=== PATIENT | male | born 1945 | race Caucasian/White ===

== ENCOUNTER 2016-08-10 11:38 | Outpatient (CLI) ==
--- NOTE | 2016-08-10 12:02 | DI ---
EXAM: Chest two views CLINICAL INDICATION: Chronic respiratory failure. COMPARISON: Prior CT dated 06/16/2016. FINDINGS: PA and lateral views of the thorax are provided. There are chronic underlying pulmonary parenchymal changes. There are bibasilar areas of scarring w hich are grossly unchanged from the prior CT. The remainder of the pulmonary parenchyma is clear an d there is no pleural abnormality. The cardiomediastinal silhouette and visualized bony structures are unchanged. IMPRESSION: 1. No interval change, with no acute pulmonary abnormality. 2. Bibasilar area of scarring.
== END 2016-08-10 11:39 | disposition home or self-care (01) ==
LOC: RAD 11:38
PROVIDERS: ATTEND Internal Medicine Pulmonary Disease
DX: J96.11 Chronic respiratory failure with hypoxia (principal)

== ENCOUNTER 2016-09-09 17:28 | Outpatient (CLI) ==
[2016-09-09 17:41] VITALS: BMI 34.7
== END 2016-09-09 17:29 ==
LOC: AMBL 17:28
PROVIDERS: ATTEND Family Medicine
DX: J96.00 Acute respiratory failure, unspecified whether with hypoxia or hypercapnia (principal); R00.1 Bradycardia, unspecified; R40.4 Transient alteration of awareness; R32 Unspecified urinary incontinence; E11.9 Type 2 diabetes mellitus without complications

== ENCOUNTER 2016-09-09 17:30 | Emergency (ER) ==
[2016-09-09] MEDS ORDERED: SODIUM CHLORIDE 1,000 ML IV STA ×2 (17:33→17:44)
[2016-09-09 17:41] VITALS: BMI 34.7
[2016-09-09 17:46] LABS: BASOPHILS % (AUTO) 0.5 % (0.0-3.0); EOSINOPHILS # (AUTO) 0.2 K/ul (0.0-0.7); HEMATOCRIT 37.1 % (42.0-52.0); HEMOGLOBIN 11.5 g/dl (14.0-18.0); LYMPHOCYTES # (AUTO) 1.5 K/uL (0.60-3.4); LYMPHOCYTES % (AUTO) 18.8 (10.0-50.0); MEAN CORPUSCULAR HEMOGLOBIN 31.3 pg (27.0-31.0); MEAN CORPUSCULAR VOLUME 101.1 fl (80.0-94.0); MONOCYTES % (AUTO) 12.7 (0-10); NEUTROPHILS # (AUTO) 5.1 K/ul (2.0-6.9); PLATELET COUNT 301 10^3/uL (140-440); RED BLOOD COUNT 3.67 10^6/ul (4.70-6.10); WHITE BLOOD COUNT 7.97 K/ul (4.2-10.2)
[2016-09-09] MEDS ORDERED: ANECTINE IVP STA (17:46)
[2016-09-09] MEDS ORDERED: DIPRIVAN 20 ML VIAL IVP STA (17:46)
[2016-09-09 17:52] LABS: ABG PCO2 68.5 mmHg (35-45); ABG PH 7.282 (7.35-7.45)
[2016-09-09 17:53] LABS: ABG BASE EXCESS 6 (-2.0-2.0); ABG HCO3 32.3 (22.0-26.0); ABG TCO2 34 (22.0-28.0)
[2016-09-09] MEDS ORDERED: URO-JET MUCOUSMEMB STA (18:00)
[2016-09-09 18:14] LABS: ALBUMIN 2.7 g/dL (3.4-5.0); ALBUMIN/GLOBULIN RATIO 0.77; ANION GAP 18.5; BILIRUBIN,TOTAL 0.81 mg/dL (0.00-1.20); BUN/CREATININE RATIO 19.65; CALCIUM 8.4 mg/dL (8.2-10.2); CREATININE 2.9 mg/dL (0.60-1.10); POTASSIUM 5.5 mmol/L (3.5-5.1); TOTAL PROTEIN 6.2 g/dL (5.8-8.1); TROPONIN I 0.033 ng/ml (0.0000-0.4000)
[2016-09-09] MEDS ORDERED: ZOSYN 3.375 GM 3.375 GM in SODIUM CHLORIDE 100 ML IV STA (18:16)
--- NOTE | 2016-09-09 18:18 | DI ---
EXAM: Chest one view. CLINICAL INDICATION: Respiratory failure. COMPARISON: 08/10/2016. FINDINGS: A single AP radiograph of the thorax is provided. The endotracheal tube is in good position. There is interval development of patchy pulmonary parenchymal opacities within the inferior one half of the right hemithorax. There are chronic underlying pulmonary parenchymal changes. The remainde r of the pulmonary parenchyma is clear and there is no pleural abnormality. The cardiomediastinal s ilhouette and visualized bony structures are unchanged. IMPRESSION: 1. Endotracheal tube in good position. 2. Patchy right-sided pulmonary parenchymal opacities.
[2016-09-09] MEDS ORDERED: URO-JET MUCOUSMEMB ONE (18:20)
--- NOTE | 2016-09-09 18:20 | ED.PDOC ---
Procedures - Intubation Time of Intubation: 17:46 Medications: Yes: Norcuron (8mg), Succinylcholine (100), Versed (2.5mg X2), Propofol (40mg), Other (ephedrine 10mg X 2) Type of Tube Used: Endotracheal Tube Size: 7.5 Cricoid Pressure Used: Yes Tube Castellon Used: Yes Position of Tube at Lip: 23cm Number of Attempts: 1 Suction Used: No Glidescope Used: No CO2 Detector Used: Yes Lung Sounds Equal Bilaterally: Yes Intubation Complications: Present: No complications Tube Placement Verified by X-ray: Yes Conscious Sedation - Pre-op Assessment Weight: 300 lb Surgical History: unknown - Medical History Past Medical History: Hypertension, Diabetes, CHF, Kidney Disease Other History: pulmonary fibrosis - Physical Exam Heart Rate/Rhythm: Regular Rate
--- NOTE | 2016-09-09 18:23 | ED.PDOC ---
General Stated Complaint: he is not breathing well Time Seen by Physician: 17:35 Mode of Arrival: Ambulance Information Source: Patient, Family, EMT Exam Limitations: No limitations Nursing and Triage Documentation Reviewed and Agree: Yes <KLEBER BUSCH - Last Filed: 09/09/16 18:21> <NOLBERTO ROQUE - Last Filed: 09/10/16 06:07> ED Provider: Dr. NOLBERTO ROQUE (KLEBER BUSCH) (NOLBERTO ROQUE) Chief Complaint: Respiratory Complaint Primary Care Provider: KLEBER PATIÑO) (NOLBERTO ROQUE) Respiratory Complaint Exam - Shortness of Air Complaint/Exam Onset/Duration: today Symptoms Are: Still present Initial Severity: Moderate Current Severity: Severe Character: Reports: Dyspnea at rest Aggravating: Reports: None Alleviating: Reports: None Associated Signs and Symptoms: Reports: Rapid breathing, Labored breathing. Denies: Cough, Wheezing, Chest pain with cough, Chest pain, Chills, Diaphoresis , Nasal congestion, Dizziness, Calf swelling, Edema, Decreased intake Related History: Reports: Similar episode History of Healthcare-Acquired Pneumonia: No Cardiac Risk Factors: Reports: Diabetes, Hypertension Pseudomonas Risk Factors: Reports: Chronic Lung Disease Tuberculosis Risk Factors: Reports: Chronic Resp. Faliure Home Oxygen Use: Yes Recent Stress Test: No Respiratory Distress: Severe Stridor Present: No Tracheal Deviation: No Subcutaneous Emphysema: No Accessory Muscle Use: Yes Retractions: Intercostal Diminished Breath Sounds: Yes Prolonged Expiratory Phase: No Unable to Speak Full Sentences: Yes Fatigue: Yes Leg Swelling: No Edilma's Sign Present: No Grunting Respirations: No Kussmaul Respirations: No Differential Diagnoses: Pulmonary Edema, Pneumonia Quality Indicator For Non-Traumatic Chest Pain/Syncope: EKG Performed <KLEBER BUSCH - Last Filed: 09/09/16 18:21> Review of Systems - Review Of Systems Constitutional: Reports: No symptoms Eyes: Reports: No symptoms Ears, Nose, Mouth, Throat: Reports: No symptoms Respiratory: Reports: Cough, Short of air Cardiac: Reports: No symptoms GI: Reports: No symptoms : Reports: No symptoms Musculoskeletal: Reports: No symptoms Skin: Reports: No symptoms Neurological: Reports: No symptoms Endocrine: Reports: No symptoms Hematologic/Lymphatic: Reports: No symptoms All Other Systems: Reviewed and Negative <KLEBER BUSCH - Last Filed: 09/09/16 18:21> Past Medical History - Past Medical History Endocrine: Reports: DM 2 Cardiovascular: Reports: Hypertension Respiratory: Reports: COPD Hematological: Reports: None Genitourinary: Reports: CKD Neuro/Psych: Reports: None Musculoskeletal: Reports: None Cancer: Reports: Unknown - Surgical History General Surgical History: Reports: Unknown - Family History Family History: Reports: Unknown - Social History Smoking Status: Never smoker, Unknown if ever smoked Hx Substance Use: No Alcohol Screening: None Lives: With family - Immunizations Tetanus Shot up to Date: (unknown) <KLEBER BUSCH - Last Filed: 09/09/16 18:21> - Past Medical History Gastrointestinal: Reports: None <MICHELEENMANUELNOLBERTO Last Filed: 09/10/16 06:07> Physical Exam - Physical Exam Appearance: Obese Ill-appearing: Moderate Eyes: MYRTLE, EOMI, Conjunctiva clear ENT: Ears normal, Nose normal, Oropharynx normal Neck: Supple Respiratory: Airway patent, Breath sounds clear, Breath sounds equal, Rhonchi Cardiovascular: RRR GI/: Soft, Nontender, No masses, Bowel sounds normal, No Organomegaly Musculoskeletal: Normal strength, ROM intact, No edema, No calf tenderness Skin: Warm, Dry, Normal color Neurological: Sensation intact, Motor intact, Reflexes intact, Cranial nerves intact, Alert, Oriented Psychiatric: Affect appropriate, Mood appropriate <KLEBER BUSCH Last Filed: 09/09/16 18:21> Interpretation - Radiology Interpretation Radiology Interpretation By: Radiologist Radiology Results: Positive Exam Interpreted: Portable CXR - EKG Interpretation Time of EKG #1: 18:24 Rate: Normal Rhythm: Sinus Ectopy: None [place]: NL ST Segment: Normal Interpretation: nsr <KLEBER BUSCH Last Filed: 09/09/16 18:21> Re-Evaluation - Re-Evaluation Time of Re-Evaluation: 20:00 Status: Improved (stable on the vaent ) Vital Signs Stable: Yes (136/76 prior to Transfer. ) Pain Level: unable to assess. <JUDENOLBERTO - Last Filed: 09/10/16 06:07> Critical Care Note - Critical Care Note Total Time (mins): 30 <KLEBER BUSCH Last Filed: 09/09/16 18:21> Course - Course Hematology/Chemistry: 09/09/16 17:35 09/09/16 17:35 <KLEBER BUSCH - Last Filed: 09/09/16 18:21> - Course Hematology/Chemistry: 09/09/16 17:35 09/09/16 17:35 <NOLBERTO ROQUE - Last Filed: 09/10/16 06:07> - Course Orders, Labs, Meds: Lab Review 09/09/16 09/09/16 09/09/16 17:31 17:35 18:20 WBC 7.97 RBC 3.67 L Hgb 11.5 L Hct 37.1 L MCV 101.1 H MCH 31.3 H MCHC 31.0 L RDW Coeff of Grace 13.4 Plt Count 301 Immature Gran % (Auto) 1.0 Neut % (Auto) 64.0 Lymph % (Auto) 18.8 [place] % (Auto) 12.7 H Eos % (Auto) 3.0 Baso % (Auto) 0.5 Immature Gran # (Auto) 0.1 Neut # 5.1 Lymph # 1.5 [place] # 1.0 Eos # 0.2 Baso # 0.0 D-Dimer 0.70 Puncture Site Rb O2 Saturation 95.0 ABG pH 7.282 L* ABG pCO2 68.5 H ABG pO2 88.0 ABG HCO3 32.3 H ABG Total CO2 34 H ABG Base Excess 6 H Joey Test + O2 Delivery Device Nrb Oxygen Liter Flow 15.00 FiO2 % 100.0 Sodium 141 Potassium 5.5 H Chloride 98 Carbon Dioxide 30 Anion Gap 18.5 BUN 57 H Creatinine 2.90 H Estimated GFR (MDRD) 22.00 BUN/Creatinine Ratio 19.65 Glucose 234 H Lactic Acid 8.2 Calcium 8.4 Total Bilirubin 0.81 AST 14 L ALT 11 L Alkaline Phosphatase 99 Total Creatine Kinase 31 Troponin I 0.0330 B-Natriuretic Peptide 562 H Total Protein 6.2 Albumin 2.7 L Globulin 3.5 Albumin/Globulin Ratio 0.77 Procalcitonin 0.26 Influenza A (Rapid) Negative Influenza B (Rapid) Negative 09/09/16 09/09/16 18:40 20:32 WBC RBC Hgb Hct MCV MCH MCHC RDW Coeff of Grace Plt Count Immature Gran % (Auto) Neut % (Auto) Lymph % (Auto) [place] % (Auto) Eos % (Auto) Baso % (Auto) Immature Gran # (Auto) Neut # Lymph # [place] # Eos # Baso # D-Dimer Puncture Site Rb Rb O2 Saturation 93.0 L 90.0 L ABG pH 7.345 L 7.358 ABG pCO2 55.5 H 52.9 H ABG pO2 71.0 L 62.0 L ABG HCO3 30.3 H 29.8 H ABG Total CO2 32 H 31 H ABG Base Excess 5 H 4 H Joey Test + + O2 Delivery Device Vent Vent Oxygen Liter Flow FiO2 % 50.0 50.0 Sodium Potassium Chloride Carbon Dioxide Anion Gap BUN Creatinine Estimated GFR (MDRD) BUN/Creatinine Ratio Glucose Lactic Acid Calcium Total Bilirubin AST ALT Alkaline Phosphatase Total Creatine Kinase Troponin I B-Natriuretic Peptide Total Protein Albumin Globulin Albumin/Globulin Ratio Procalcitonin Influenza A (Rapid) Influenza B (Rapid) Orders Category Date Time Status ABG DRAW REQUEST Stat CARDIO 09/09/16 17:32 Completed EKG-(ED ONLY) Stat CARDIO 09/09/16 17:31 Completed TRANSFER TO OUTSIDE FACILITY .TO [facility] 09/09/16 18:27 Active ([place], [place]) WRITE TRANSFER/SBAR NOTE ONCE CARE 09/09/16 18:27 Completed DISCHARGE ASSESSMENT ONCE DISCHARGE 09/09/16 18:27 Completed WRITE DISCHARGE NOTE ONCE DISCHARGE 09/09/16 18:27 Completed IV [ED IV/MEDIPORT/POWERPORT] .ONCE EMERGENCY 09/09/16 17:33 Active ABG Routine LAB 09/09/16 18:40 Completed ABG Routine LAB 09/09/16 20:32 Completed ABG Stat LAB 09/09/16 17:31 Completed BLOOD CULTURE Stat LAB 09/09/16 17:35 Received BNP [B-TYPE NATRIURETIC PEPTIDE] Stat LAB 09/09/16 17:35 Completed CBC W/ AUTO DIFF Stat LAB 09/09/16 17:35 Completed COMPREHENSIVE METABOLIC PANEL Stat LAB 09/09/16 17:35 Completed CREATINE KINASE Stat LAB 09/09/16 17:35 Completed D-DIMER Stat LAB 09/09/16 17:35 Completed LACTIC ACID Stat LAB 09/09/16 17:35 Completed PROCALCITONIN Stat LAB 09/09/16 17:35 Completed RAPID FLU A/B Stat LAB 09/09/16 18:20 Completed TROPONIN I Stat LAB 09/09/16 17:35 Completed 0.9 % Sodium Chloride [Saline Flush] MEDS 09/09/16 17:33 Discontinued 1 syr IVF PRN PRN Fentanyl Amp [Sublimaze] MEDS 09/09/16 19:11 Discontinued 25 mcg IVP ONCE STA Lidocaine HCl [Uro-Jet] MEDS 09/09/16 18:20 Discontinued 10 ml MUCOUSMEMB .STK-MED ONE Lorazepam Inj [Ativan] MEDS 09/09/16 19:20 Discontinued 2 mg .ROUTE .STK-MED ONE Lorazepam Inj [Ativan] MEDS 09/09/16 21:17 Discontinued 2 mg .ROUTE .STK-MED ONE Lorazepam Inj [Ativan] MEDS 09/09/16 19:03 Discontinued 2 mg IVP Q2H PRN Midazolam HCl Inj [Versed] MEDS 09/09/16 19:02 Discontinued 5 mg .ROUTE .STK-MED ONE Piperacillin Sodium/Tazobactam [Zosyn 3.375 gm] 3.375 MEDS 09/09/16 18:16 Discontinued gm 0.9 % Sodium Chloride [Sodium Chloride] 100 ml IV ONCE Sodium Chloride 0.9% [Sodium Chloride] 1,000 ml MEDS 09/09/16 17:44 Discontinued IV 1,000 mls/hr Sodium Chloride 0.9% [Sodium Chloride] 1,000 ml MEDS 09/09/16 17:33 Discontinued IV 100 mls/hr Succinylcholine Chloride [Anectine] MEDS 09/09/16 19:01 Discontinued 20 mg .ROUTE .STK-MED ONE Vecuronium [place] [Norcuron] MEDS 09/09/16 19:01 Discontinued 10 mg .ROUTE .STK-MED ONE Vecuronium [place] [Norcuron] MEDS 09/09/16 21:16 Discontinued 5 mg IVP ONCE STA CXR [CHEST, 1V AP ONLY] Stat RADS 09/09/16 17:32 Completed Medications Discontinued Medications Generic Name Dose Route Start Last Admin Trade Name Freq PRN Reason Stop Dose Admin Fentanyl Citrate 25 mcg 09/09/16 19:11 09/10/16 00:01 Sublimaze IVP 09/09/16 19:12 Not Given ONCE STA Sodium Chloride 1,000 mls @ 100 mls/hr 09/09/16 17:33 Sodium Chloride IV 09/10/16 03:32 .Q10H STA Sodium Chloride 1,000 mls @ 1,000 mls/hr 09/09/16 17:44 09/09/16 17:50 Sodium Chloride IV 09/09/16 18:32 1,000 mls/hr .Q1H STA Administration Piperacillin Sod/Tazobactam 100 mls @ 100 mls/hr 09/09/16 18:16 09/09/16 19: 00 Sod 3.375 gm/ Sodium Chloride IV 09/09/16 19:15 100 mls/hr ONCE STA Administration Lorazepam 2 mg 09/09/16 19:03 09/09/16 19:28 Ativan IVP 2 mg Q2H PRN Administration Agitation Sodium Chloride 1 syr 09/09/16 17:33 09/09/16 18:53 Saline Flush IVF 1 syr PRN PRN Administration To flush IV Vecuronium [place] 5 mg 09/09/16 21:16 09/09/16 22:28 Norcuron IVP 09/09/16 21:17 5 mg ONCE STA Administration (KLEBER BUSCH) (NOLBERTO ROQUE) Vital Signs: Temp Pulse Resp BP Pulse Ox 09/09/16 20:06 20 09/09/16 19:08 62 16 126/63 95 09/09/16 18:59 96.9 F L 65 16 121/60 100 09/09/16 18:01 18 09/09/16 17:31 96.0 F L 67 32 H 98/56 L 91 L (KLEBER BUSCH) (NOLBERTO ROQUE) Departure - Departure Time of Disposition: 18:25 Pt referred to PMD for follow-up: Yes Transfer Form Completed: Yes Disposition Discussed With: Family <KLEBER BUSCH - Last Filed: 09/09/16 18:21> - Departure Time of Disposition: 20:06 Pt referred to PMD for follow-up: No <NOLBERTO ROQUE - Last Filed: 09/10/16 06:07> - Departure Disposition: TSF SHORT-TRM HOSP Discharge Problem: Acute respiratory failure Qualifiers: Respiratory failure complication: hypoxia and hypercapnia Qualifier Code: ( J96.01) Acute respiratory failure with hypoxia Instructions: Chronic Lung Disease and Infection Prevention (ED) Condition: Stable Allergies/Adverse Reactions: Allergies Sulfa (Sulfonamide Antibiotics) Adverse Reaction (Verified 09/09/16 17:59) yellow dye Adverse Reaction (Verified 09/09/16 17:58)
--- NOTE | 2016-09-09 18:23 | ED.PDOC ---
Procedures - IV/Art Line Insertion Location: IVs times 2 one in Rt wrist(22ga) other Lt ACL Type of Line: Peripheral IV Invasive Line/IV Catheter Gauge: 22 Number of Attempts: 1 Blood Return Positive: Yes Invasive Line/IV Flushes Without Difficulty: Yes Conscious Sedation - Pre-op Assessment Weight: 300 lb Surgical History: unknown - Medical History Past Medical History: Hypertension, Diabetes, CHF, Kidney Disease Other History: pulmonary fibrosis - Physical Exam Heart Rate/Rhythm: Regular Rate
[2016-09-09 18:33] LABS: FLU INTERNAL QC INTERNAL QC VALID; RAPID FLU A NEGATIVE (NEGATIVE); RAPID FLU B NEGATIVE (NEGATIVE)
[2016-09-09 18:45] LABS: ABG BASE EXCESS 5 (-2.0-2.0); ABG PCO2 55.5 mmHg (35-45); ABG PH 7.345 (7.35-7.45)
[2016-09-09 18:46] LABS: ABG HCO3 30.3 (22.0-26.0); ABG TCO2 32 (22.0-28.0)
[2016-09-09 19:01] VITALS: TEMP 96.9
[2016-09-09] MEDS ORDERED: NORCURON ONE (19:01)
[2016-09-09] MEDS ORDERED: ANECTINE ONE (19:01)
[2016-09-09] MEDS ORDERED: VERSED ONE (19:02)
[2016-09-09] MEDS ORDERED: ATIVAN IVP PRN (19:03)
[2016-09-09 19:10] VITALS: BP 126/63
[2016-09-09] MEDS ORDERED: SUBLIMAZE IVP STA (19:11)
[2016-09-09] MEDS ORDERED: ATIVAN ONE (19:20)
[2016-09-09 20:33] LABS: ABG BASE EXCESS 4 (-2.0-2.0); ABG HCO3 29.8 (22.0-26.0); ABG PCO2 52.9 mmHg (35-45); ABG PH 7.358 (7.35-7.45); ABG TCO2 31 (22.0-28.0)
[2016-09-09] MEDS ORDERED: NORCURON IVP STA (21:16)
[2016-09-09] MEDS: ATIVAN ONE (21:17)
[2016-09-10] MEDS: ATIVAN ONE (04:23)
== END 2016-09-09 21:30 | disposition short-term general hospital (02) ==
LOC: ED 17:30
DX: J96.01 Acute respiratory failure with hypoxia (principal); E11.9 Type 2 diabetes mellitus without complications; I10 Essential (primary) hypertension; J44.9 Chronic obstructive pulmonary disease, unspecified; N18.9 Chronic kidney disease, unspecified
CPT/HCPCS: 36415; 80053; 82550; 82803; 83605; 83880; 84145; 84484; 85025; 85379; 87040; 87804; 93005; 93010; 96361; 96365; 96375; 96376; 99285; 99291; 99292